=== PATIENT | male | born 1965 | race Caucasian/White ===

== ENCOUNTER 2019-01-21 11:58 | Outpatient (CLI) | payer BC ==
[~2019-01-21] VITALS: Ht 114.8 cm; Wt 187.0 kg
[2019-01-21] MEDS ORDERED: ESOM20CA PO (12:15)
[2019-01-21 12:18] VITALS: BP 120/87
[2019-01-21 13:06] LABS: BASOPHILS % (AUTO) 0 % (0-10); EOSINOPHILS # (AUTO) 0.1 10^3/uL (0.0-0.3); EOSINOPHILS % (AUTO) 1 % (0-10); HEMATOCRIT 44 % (40-54); HEMOGLOBIN 14.8 G/DL (13.3-17.7); LYMPHOCYTES # (AUTO) 2.2 X 10^3 (1.0-4.0); LYMPHOCYTES % (AUTO) 23 % (12-44); MEAN CORPUSCULAR HEMOGLOBIN 29 PG (25-34); MEAN CORPUSCULAR HGB CONC 33 G/DL (32-36); MEAN CORPUSCULAR VOLUME 87 FL (80-99); MEAN PLATELET VOLUME 10.1 FL (7.4-10.4); MONOCYTES # (AUTO) 1.2 X 10^3 (0.0-1.0); MONOCYTES % (AUTO) 13 % (0-12); NEUTROPHILS # (AUTO) 5.9 X 10^3 (1.8-7.8); NEUTROPHILS % (AUTO) 63 % (42-75); PLATELET COUNT 300 10^3/uL (130-400); RED CELL DISTRIBUTION WIDTH 14.3 % (10.0-14.5); WHITE BLOOD COUNT 9.4 10^3/uL (4.3-11.0)
[2019-01-21 13:26] LABS: BUN/CREATININE RATIO 20; CALCIUM 9.3 MG/DL (8.5-10.1); CARBON DIOXIDE 20 MMOL/L (21-32); CHLORIDE 108 MMOL/L (98-107); CREATININE SERUM 1.06 MG/DL (0.60-1.30); GFR ESTIMATED > 60; GLUCOSE 85 MG/DL (70-105); POTASSIUM 3.9 MMOL/L (3.6-5.0); SODIUM 140 MMOL/L (135-145)
== END 2019-01-21 15:47 | disposition home or self-care (01) ==
LOC: PREOP 11:58
PROVIDERS: ATTEND Otolaryngology Otolaryngology/Facial Plastic Surgery
DX: Z01.812 Encounter for preprocedural laboratory examination (principal); Z01.810 Encounter for preprocedural cardiovascular examination; J32.9 Chronic sinusitis, unspecified; J34.2 Deviated nasal septum; J34.3 Hypertrophy of nasal turbinates; R22.0 Localized swelling, mass and lump, head
CPT/HCPCS: 36415; 80048; 85025; 87081; 93005

== ENCOUNTER 2019-01-31 06:55 | Day surgery (SDC) | payer BC ==
[~2019-01-31] VITALS: Ht 183 cm; Wt 104.0 kg
[2019-01-31] VITALS (11 sets, daily range): BP systolic 131–157; BP diastolic 86–99
[~2019-01-31 06:55] MED LIST: ESOM20CA PO
[2019-01-31] MEDS ORDERED: LACTATED RINGERS 1,000 ML IV PRN (06:57)
[2019-01-31] MEDS ORDERED: HYDROCORTISONE 100 MG/2 ML (Solu-CORTEF) VIAL IV ONE (07:00)
[2019-01-31] MEDS ORDERED: AMPICILLIN/SULBACTAM INJECTION 1.5 GM in NS (IVPB) 100 ML IV ONE (07:00)
[2019-01-31] MEDS ORDERED: BSS 15 ML ONE (07:27)
[2019-01-31] MEDS ORDERED: COCAINE HCL 4% 2 ML SYR ONE (07:27)
[2019-01-31] MEDS ORDERED: LIDOCAINE/EPI 1%-1:100,000 (XYLOCAINE) 20ML ONE ×2 (07:28→09:47)
[2019-01-31] MEDS ORDERED: PHENYLEPHRINE 0.25% NASAL SPR (NEO-SYNEPHRINE) 15 ML NS ONE (07:28)
[2019-01-31] MEDS ORDERED: PHENYLEPHRINE 0.5% NASAL SPR (NEO-SYNEPHRINE) REG ONE (07:33)
[2019-01-31] MEDS ORDERED: proPOfol 200 MG/20 ML (DIPRIVAN) VIAL IV ONE (08:37)
[2019-01-31] MEDS ORDERED: fentaNYL INJECTION 100 MCG/2 ML AMP ONE (08:37)
[2019-01-31] MEDS ORDERED: DEXAMETHASONE 10 MG/ML (DECADRON) 1 ML VIAL ONE (08:37)
[2019-01-31] MEDS ORDERED: MIDAZOLAM 2 MG/2 ML (VERSED) VIAL ONE (08:37)
[2019-01-31] MEDS ORDERED: ROCURONIUM 10 MG/ML 5 ML SYRINGE IV ONE (08:37)
[2019-01-31] MEDS ORDERED: SEVOFLURANE (ULTANE) 15 ML INHAL SOLN ONE ×3 (08:37→10:22)
[2019-01-31] MEDS ORDERED: LIDOCAINE PF 2% 5 ML (XYLOCAINE) VIAL ONE (08:37)
[2019-01-31] MEDS ORDERED: ONDANSETRON 4 MG/2 ML (SDV) Z0FRAN ONE (08:37)
--- NOTE | 2019-01-31 08:56 | Progress Note-Pre Operative ---
Pre-Operative Progress Note H&P Reviewed The H&P was reviewed, patient examined and no changes noted. Date Seen by Provider: Jan 31, 2019 Time Seen by Provider: 08:30 Date H&P Reviewed: Jan 31, 2019 Time H&P Reviewed: 08:30 Pre-Operative Diagnosis: Bilat Chronic SInusitis, Deviated SEptum, Bilat Red of Inf Turbs LAURIE MARS MD Jan 31, 2019 08:56 POS
[2019-01-31] MEDS ORDERED: LIDOCAINE JELLY 2% 6 ML SYRINGE ONE (10:21)
[2019-01-31] MEDS ORDERED: D5 1/2 NS W/KCL 20 MEQ/L 1,000 ML IV SCH (10:29)
--- NOTE | 2019-01-31 10:29 | Progress Note-Post Operative ---
Post-Operative Progess Note Surgeon (s)/Computer Systems Software Architect (s) Surgeon LAURIE MARS MD Computer Systems Software Architect n/a Pre-Operative Diagnosis Bilat Chronic SInusitis, Deviated SEptum, Bilat Red of Inf Turbs Post-Operative Diagnosis same Post-Op Procedure Note Date of Procedure: Jan 31, 2019 Name of Procedure Performed: Bilat ESS, Nasal Septoplasty, Bilat REd of Inf Turbs Description & Findings Description and Findings: n/a Anesthesia Type get Estimated Blood Loss minimal Packing none. Specimen(s) collected/removed nasal septum, bilt chornic sinusitis LAURIE MARS MD Jan 31, 2019 10:29 POS
[2019-01-31] MEDS ORDERED: ACETAMINOPHEN 325 MG TABLET PO PRN (10:30)
[2019-01-31] MEDS ORDERED: HYDROcodone/APAP 5 MG/325 MG (LORTAB) TAB PO PRN (10:30)
[2019-01-31] MEDS ORDERED: predniSONE 20 MG TAB PO ONE (10:30)
[2019-01-31] MEDS ORDERED: PROMETHAZINE INJ 25 MG/ML (PHENERGAN) AMP IVP PRN (10:30)
[2019-01-31] MEDS ORDERED: MEPERIDINE (DEMEROL) INJ 50 MG/ML IVP ONE (10:45)
[2019-01-31] MEDS ORDERED: morphine INJ 10 MG/ML 1ML (SYR OR VIAL) IVP ONE (10:45)
[2019-01-31] MEDS ORDERED: fentaNYL INJECTION 100 MCG/2 ML AMP IVP ONE (10:45)
[2019-01-31] MEDS ORDERED: ONDANSETRON 4 MG/2 ML (SDV) Z0FRAN IVP PRN (10:45)
[2019-01-31] MEDS ORDERED: HYDR-3812 PO (11:51)
[2019-01-31] MEDS ORDERED: AMOX-355 PO (11:51)
[2019-01-31] MEDS ORDERED: PRD20T PO (11:51)
--- NOTE | 2019-01-31 14:20 | Anesthesia-General Post-Op ---
General Patient Condition Mental Status/LOC: Same as Preop Cardiovascular: Satisfactory Nausea/Vomiting: Absent Respiratory: Satisfactory Pain: Controlled Complications: Absent Post Op Complications Complications None Follow Up Care/Instructions Patient Instructions None needed. Anesthesia/Patient Condition Patient Condition Patient is doing well, no complaints, stable vital signs, no apparent adverse anesthesia problems. No complications reported per nursing. RAMÍREZ HAYES CRNA Jan 31, 2019 14:20 POS
--- OUTSIDE RECORDS SUMMARY | 2019-02-26 00:59 | XMS REPORT | Continuity of Care Document ---
Author Organization Unknown Address Unknown Phone Unavailable Allergies Active Description Code Type Severity Reaction Onset Reported/Identified Relationship to Patient Clinical Status Yes tetracycline [id number] Drug Allergy Mild GI UPSET 01/21/2019 Medications There is no data. Problems Date Dx Coded Attending Type Code Diagnosis Diagnosed By 01/21/2019 LAURIE MARS MD, Ot J32 .9 CHRONIC SINUSITIS, UNSPECIFIED 01/21/2019 LAURIE MARS MD, Ot J34 .2 DEVIATED NASAL SEPTUM 01/21/2019 LAURIE MARS MD, Ot J34 .3 HYPERTROPHY OF NASAL TURBINATES 01/21/2019 LAURIE MARS MD Ot R22 .0 LOCALIZED SWELLING, MASS AND LUMP, HEAD 01/21/2019 LAURIE MARS MD Ot Z01.810 ENCOUNTER FOR PREPROCEDURAL CARDIOVASCUL 01/21/2019 LAURIE MARS MD Ot Z01.812 ENCOUNTER FOR PREPROCEDURAL LABORATORY E 01/23/2019 LAURIE MARS MD Ot J32 .9 CHRONIC SINUSITIS, UNSPECIFIED 01/23/2019 LAURIE MARS MD, Ot J34 .2 DEVIATED NASAL SEPTUM 01/23/2019 LAURIE MARS MD, Ot J34 .3 HYPERTROPHY OF NASAL TURBINATES 01/23/2019 LAURIE MARS MD Ot R22 .0 LOCALIZED SWELLING, MASS AND LUMP, HEAD 01/23/2019 LAURIE MARS MD Ot Z01.810 ENCOUNTER FOR PREPROCEDURAL CARDIOVASCUL 01/23/2019 LAURIE MARS MD Ot Z01.812 ENCOUNTER FOR PREPROCEDURAL LABORATORY E 02/07/2019 LAURIE MARS MD Ot F32 .9 MAJOR DEPRESSIVE DISORDER, SINGLE EPISOD 02/07/2019 LAURIE MARS MD, Ot F41 .9 ANXIETY DISORDER, UNSPECIFIED 02/07/2019 LAURIE MARS MD, Ot G43.909 MIGRAINE, UNSP, NOT INTRACTABLE, WITHOUT 02/07/2019 LAURIE MARS MD Ot G89.29 OTHER CHRONIC PAIN 02/07/2019 LAURIE MARS MD, Ot J32 .9 CHRONIC SINUSITIS, UNSPECIFIED 02/07/2019 LAURIE MARS MD, Ot J34 .1 CYST AND MUCOCELE OF NOSE AND NASAL SINU 02/07/2019 LAURIE MARS MD, Ot J34 .2 DEVIATED NASAL SEPTUM 02/07/2019 LAURIE MARS MD, Ot J34 .3 HYPERTROPHY OF NASAL TURBINATES 02/07/2019 LAURIE MARS MD, Ot J34.89 OTHER SPECIFIED DISORDERS OF NOSE AND NA 02/07/2019 LAURIE MARS MD, Ot K21 .9 GASTRO-ESOPHAGEAL REFLUX DISEASE WITHOUT 02/07/2019 LAURIE MARS MD, Ot M54 .9 DORSALGIA, UNSPECIFIED 02/07/2019 LAURIE MARS MD, Ot Z79.899 OTHER USP (CURRENT) DRUG THERAPY 02/07/2019 LAURIE MARS MD, Ot Z88 .1 ALLERGY STATUS TO OTHER ANTIBIOTIC AGENT 02/07/2019 LAURIE MARS MD, Ot Z90.89 ACQUIRED ABSENCE OF OTHER ORGANS Procedures There is no data. Results Test Result Range Complete blood count (CBC) with automate d white blood cell (WBC) differential - 01/21/19 12:40 Blood leukocytes automated count (number/volume) 9.4 10*3/uL 4.3-11.0 Blood erythrocytes automated count (number/volume) 5.07 10*6/uL 4.35-5.85 Venous blood hemoglobin measurement (mass/volume) 14.8 g/dL 13.3-17.7 Blood hematocrit (volume fraction) 44 % 40-54 Automated erythrocyte mean corpuscular volume 87 [ foz_us] 80-99 Automated erythrocyte mean corpuscular h emoglobin (mass per erythrocyte) 29 pg 25-34 Automated erythrocyte mean corpuscular h emoglobin concentration measurement (mass/volume) 33 g/dL 32-36 Automated erythrocyte distribution width ratio 14. 3 % 10.0- 14.5 Automated blood platelet count (count/volume) 300 10*3/uL 130-400 Automated blood platelet mean volume measurement 10.1 [foz_us] 7.4-10.4 Automated blood neutrophils/100 leukocytes 63 % 42-75 Automated blood lymphocytes/100 leukocytes 23 % 12-44 Blood monocytes/100 leukocytes 13 % 0-12 Automated blood eosinophils/100 leukocytes 1 % 0-10 Automated blood basophils/100 leukocytes 0 % 0-10 Blood neutrophils automated count (number/volume) 5.9 10*3 1.8-7.8 Blood lymphocytes automated count (number/volume) 2.2 10*3 1.0-4.0 Blood monocytes automated count (number/volume) 1. 2 10*3 0.0-1.0 Automated eosinophil count 0.1 10*3/uL 0 .0-0.3 Automated blood basophil count (count/volume) 0.0 10*3/uL 0.0-0.1 Whole blood basic metabolic panel - 12/29 07/15 12:40 Serum or plasma sodium measurement (moles/volume) 140 mmol/L 135-145 Serum or plasma potassium measurement (moles/volume) 3.9 mmol/L 3.6-5.0 Serum or plasma chloride measurement (moles/volume) 108 mmol/L 98-107 Carbon dioxide 20 mmol/L 21-32 Serum or plasma anion gap determination (moles/volume) 12 mmol/L 5-14 Serum or plasma urea nitrogen measurement (mass/volume ) 21 mg/dL 7-18 Serum or plasma creatinine measurement (mass/volume) 1.06 mg/dL 0.60-1.30 Serum or plasma urea nitrogen/creatinine mass ratio 20 NRG Serum or plasma creatinine measurement w ith calculation of estimated glomerular filtration rate > NRG Serum or plasma glucose measurement (mass/volume) 85 mg/dL 70-105 Serum or plasma calcium measurement (mass/volume) 9.3 mg/dL 8.5-10.1 Methicillin resistant Staphylococcus aur eus (MRSA) screening culture - 01/21/19 12:40 Methicillin resistant Staphylococcus aureus (MRSA) scr eening culture NEG NRG Encounters ACCT No. Visit Date/Time Discharge Status Pt. Type Provider Facility Loc./Unit Complaint [id number] 08/15/2018 13:45:00 08/15/2018 23:59: 59 [facility] [id number] 01/31/2019 06:55:00 12:55:00 DIS Outpatient LAURIE MARS MD [facility] SDC CHRONIC SINUSITIS,RIGHT [place] MASS [id number] 01/21/2019 11:58:00 15:47:00 DIS Outpatient LAURIE MARS MD [facility] PREOP CHRONIC SINUSITIS,RIGHT CHEEK MASS
== END 2019-01-31 12:55 | disposition home or self-care (01) ==
LOC: SDC 06:55
PROVIDERS: ATTEND Otolaryngology Otolaryngology/Facial Plastic Surgery
DX: J34.2 Deviated nasal septum (principal); J32.9 Chronic sinusitis, unspecified; J34.3 Hypertrophy of nasal turbinates; J34.89 Other specified disorders of nose and nasal sinuses; J34.1 Cyst and mucocele of nose and nasal sinus; G43.909 Migraine, unspecified, not intractable, without status migrainosus; G89.29 Other chronic pain; M54.9 Dorsalgia, unspecified; K21.9 Gastro-esophageal reflux disease without esophagitis; F41.9 Anxiety disorder, unspecified; F32.9 Major depressive disorder, single episode, unspecified; Z88.1 Allergy status to other antibiotic agents; Z90.89 Acquired absence of other organs; Z79.899 Other long term (current) drug therapy
CPT/HCPCS: 88305; 88311